=== PATIENT | female | born 1965 | race African-American/Black ===

== ENCOUNTER → 2016-08-04 | Outpatient (CLI) | payer BC ==
[~2016-08-04] MED LIST: BIOT1CAP8 PO; KRV28 PO; MULT-506 PO
== END | disposition home or self-care (01) ==
LOC: C.PAPS 10:02
PROVIDERS: ATTEND Obstetrics & Gynecology
DX: Z01.419 Encounter for gynecological examination (general) (routine) without abnormal findings (principal)

== ENCOUNTER → 2016-09-26 | Outpatient (CLI) | payer BC ==
--- NOTE | 2016-09-26 15:24 | MAMMOGRAPHY REPORT ---
BILATERAL DIGITAL SCREENING MAMMOGRAM TOMOSYNTHESIS WITH CAD: 09/26/2016 CLINICAL HISTORY: Routine screening. Patient has no complaints. TECHNIQUE: Breast tomosynthesis in addition to standard 2D mammography was performed. Current study was also evaluated with a Computer Aided Detection (CAD) system. COMPARISON: Comparison is made to exams dated: 09/19/2015 mammogram, 05/16/2014 mammogram, 05/05/2014 m ammogram, 12/07/2012 mammogram, 09/25/2011 mammogram, and 09/22/2011 mammogram - [facility]. BREAST COMPOSITION: The tissue of both breasts is heterogeneously dense, which may obscure small ma sses. FINDINGS: No suspicious masses, calcifications, or areas of architectural distortion are noted in e ither breast. There has been no significant interval change compared to prior exams. IMPRESSION: ACR BI-RADS CATEGORY 1: NEGATIVE There is no mammographic evidence of malignancy. A 1 year screening mammogram is recommended. The p atient will receive written notification of the results. Approximately 10% of breast cancers are not detected with mammography. A negative mammographic repor t should not delay biopsy if a clinically suggestive mass is present. Farida Fischer M.D. /:09/26/2016 15:11:13 Repair Table Operator: Renae WOODRUFF(R)(M), [facility] letter sent: Normal 1/2 BI-RADS Code: ACR BI-RADS Category 1: Negative
== END | disposition home or self-care (01) ==
LOC: C.MAMM 09:15
PROVIDERS: ATTEND Nurse Practitioner Family
DX: Z12.31 Encounter for screening mammogram for malignant neoplasm of breast (principal)

== ENCOUNTER → 2016-10-27 | Outpatient (CLI) | payer BC ==
--- NOTE | 2016-10-27 10:46 | DIAGNOSTIC IMAGING REPORT ---
RIGHT HAND MIN 3 VIEWS ROUTINE CLINICAL HISTORY: RIGHT HAND PAIN Right pain COMPARISON: None. DISCUSSION: The bones and joint spaces appear intact. There is no evidence of fracture, dislocation or bony disease. There is no evidence for soft tissue swelling. IMPRESSION: Negative study. Electronically signed by: Schuyler Sanchez M.D. 10/27/2016 10:45 AM Dictated Date/Time: 10/27/2016 10:44 AM
== END | disposition home or self-care (01) ==
LOC: C.RAD1850 10:03
PROVIDERS: ATTEND Family Medicine
DX: M79.641 Pain in right hand (principal)

== ENCOUNTER → 2017-01-19 | Outpatient (CLI) | payer BC ==
--- NOTE | 2017-01-19 16:07 | DIAGNOSTIC IMAGING REPORT ---
RIGHT ANKLE MIN 3 VIEWS CLINICAL HISTORY: Right ankle pain. COMPARISON: None FINDINGS: Alignment of the right ankle is anatomic. No fracture or suspicious lesion is present. There is mild plantar calcaneal spurring. Note is made of an 8 mm subchondral lucency of the medial talar dome with suspected mild associated cortical irregularity. IMPRESSION: 1. No acute fracture. 2. 8 mm subchondral lucency with mild cortical irregularity of the medial talar dome which suggests an osteochondral lesion. Electronically signed by: Raphael Irwin M.D. 01/19/2017 4:06 PM Dictated Date/Time: 01/19/2017 4:04 PM
--- NOTE | 2017-01-19 16:55 | DIAGNOSTIC IMAGING REPORT ---
RIGHT WRIST MIN 3 VIEWS ROUTINE CLINICAL HISTORY: 51 years-old Female presenting with RIGHT WRIST PAIN Right. TECHNIQUE: Frontal, carpal tunnel, oblique, and lateral views of the right wrist were obtained. COMPARISON: None. FINDINGS: Radiocarpal, intercarpal, and carpometacarpal articulations intact. Carpal tunnel normal in appearance. Focus of the hamate intact. No acute fracture or malalignment. No degenerative change. No radiographic evidence of soft tissue abnormality. IMPRESSION: No acute osseous injury or significant degenerative change. Electronically signed by: Noe Ibarra M.D. 01/19/2017 4:53 PM Dictated Date/Time: 01/19/2017 4:50 PM
== END | disposition home or self-care (01) ==
LOC: C.RDSM 16:07
PROVIDERS: ATTEND Family Medicine
DX: M79.641 Pain in right hand (principal); M25.571 Pain in right ankle and joints of right foot

== ENCOUNTER → 2017-01-27 | Outpatient (CLI) | payer BC ==
--- NOTE | 2017-01-27 11:33 | DIAGNOSTIC IMAGING REPORT ---
R LOWER EXT JOINT WITHOUT CLINICAL HISTORY: RIGHT ANKLE PAIN pain TECHNIQUE: Multiaxial MRI acquisition COMPARISON STUDY: None FINDINGS: Signal characteristics the osseous structures confirm the presence of a 6 mm osteochondral lesion medial talar dome. There is slight focal loss of the overlying articular services. Signal characteristics of all remaining osseous structures are unremarkable. Medial and lateral collateral ligament complexes are unremarkable. Findings mild tendinopathy of the posterior tibial tendon. Peroneal tendons appear to be intact. Findings a minimal degenerative change of the subtalar joint region. There is mild edematous change of the interosseous ligament. There are findings of very mild edematous change of the plantar fascia. Achilles tendon appears to be intact. All remaining ligamentous and tendinous structures are intact. There is mild soft tissue edematous change adjacent to the medial malleolus. IMPRESSION: 1. Moderate tendinopathy of the posterior tibialis tendon. 2. 6 mm osteochondral defect medial talar dome. 3. Mild edematous change of the plantar fascia. 4. Otherwise negative study The above report was generated using voice recognition software. It may contain grammatical, syntax or spelling errors. Electronically signed by: Schuyler Sanchez M.D. 01/27/2017 11:32 AM Dictated Date/Time: 01/27/2017 11:25 AM
== END | disposition home or self-care (01) ==
LOC: C.MRI 09:16
PROVIDERS: ATTEND Family Medicine
DX: M25.571 Pain in right ankle and joints of right foot (principal)

== ENCOUNTER → 2017-06-12 | Outpatient (CLI) | payer OTHER ==
[~2017-06-12] MED LIST changes: +CHOL1000 PO; -KRV28 PO; +METH4PAK PO; +METH500C8 PO
--- NOTE | 2017-06-12 17:45 | DIAGNOSTIC IMAGING REPORT ---
R LOWER EXT JOINT WITHOUT CLINICAL HISTORY: 51 years-old Female presenting with RIGHT ANKLE PAIN, LESION. TECHNIQUE: Multisequence, multiplanar MR imaging of the right ankle was performed without the use of intravenous contrast. IV contrast: None. COMPARISON: 01/27/2017. FINDINGS: Localizer images: Unremarkable. Persistent defect at the medial talar dome consistent with an osteochondral lesion. No subjacent fluid signal intensity to suggest instability. No increased cortical collapse is evident. No new sites of normal bone marrow signal intensity. Articular cartilage otherwise preserved. Minimal subcutaneous edema at the ankle. Fluid tracks along the tibialis posterior as on prior exam. Minimal fluid within the tendon sheath of the flexor digitorum longus and flexor hallucis longus. Minimal fluid tracks along the tendon sheath of the peroneus longus. Minimal fluid tracks along the tendon sheath of the extensor digitorum longus. Anterior inferior tibiofibular ligaments intact. Intraosseous ligament intact. Anterior and posterior talofibular ligaments intact. Calcaneofibular ligament intact. Deltoid ligament intact. Achilles tendon and plantar fascia intact. Small ankle joint effusion. IMPRESSION: 1. No significant change in appearance of the osteochondral lesion at the medial talar dome. No evidence of instability. 2. Fluid along the tendon sheaths of multiple ankle tendons suggest tendinitis. This involves the tibialis posterior, flexor digitorum longus, flexor hallucis longus, peroneus longus, and extensor digitorum longus. 3. Small ankle joint effusion. Electronically signed by: Noe Ibarra M.D. 06/12/2017 5:43 PM Dictated Date/Time: 06/12/2017 5:37 PM
== END | disposition home or self-care (01) ==
LOC: C.MRI 16:20
PROVIDERS: ATTEND Physician Assistant
DX: M89.9 Disorder of bone, unspecified (principal); M94.9 Disorder of cartilage, unspecified; Z91.018 Allergy to other foods; Z91.030 Bee allergy status

== ENCOUNTER → 2017-06-29 | Day surgery (SDC) | payer OTHER ==
[2017-06-02 16:16] VITALS: Ht 165.1 cm; Wt 108.2 kg
[~2017-06-29] VITALS: Ht 165.1 cm; Wt 108.2 kg
[~2017-06-29] MED LIST changes: +ATROPINE SULFATE 0.1 MG/ML 5ML SYR IV PRN; +CEFAZOLIN 2000MG IV PUSH 15 ML IV SCH; +DEXAMETHASONE SOD INJ 4 MG/ML VIAL ONE; +EpHEDrine SULFATE INJ 50 MG/ML AMP IV PRN; +EpINEphrine INJ 1MG/ML AMP 1 MG/ML AMP ONE; +FENTANYL CITRATE INJ 50 MCG/1 ML 2 ML VIAL IV PRN; +FENTANYL CITRATE INJ 50 MCG/1 ML 2 ML VIAL ONE; +HYDROmorphone INJ 1 MG/ML SYR IV PRN; +LIDOCAINE HCL 2% 2 ML VIAL (20MG/ML) ONE; +MIDAZOLAM HCL 1 MG/ML 2ML VIAL ONE; +ONDANSETRON INJ 2 MG/ML 2 ML VIAL IV PRN; +ONDANSETRON INJ 2 MG/ML 2 ML VIAL ONE; +OXYCODONE/ACETAMINOPHEN 5-325 TAB PO PRN; +PROMETHAZINE HCL INJ 12.5 MG in SODIUM CHLORIDE 0.9% 50ML 50 ML IV PRN; +PROPOFOL IV EMULSION 10 MG/ML 20 ML VIAL IV ONE; +ROPIVACAINE 0.5% 5 MG/ML 30 ML VIAL ONE; +SODIUM CHLORIDE 0.9% 1000ML 1,000 ML IV SCH
[2017-06-29] MEDS: LACTATED RINGER'S 1000ML 1,000 ML IV SCH ×2 (10:01→13:20)
--- NOTE | 2017-06-29 11:00 | History & Physical Bridge - SC ---
H&P Re-Evaluation Bridge Note: I have examined the patient, reviewed the History & Physical and in the interval since the performance of the History & Physical I have noted the following changes of clinical significance: No changes noted
--- NOTE | 2017-06-29 12:47 | [facility] Post Operative Brief Note ---
Immediate Operative Summary Operative Date Jun 29, 2017. Pre-Operative Diagnosis Right Ankle Osteochondral Lesion Of Talus, Right ankle synovitis Post-Operative Diagnosis Same Procedure(s) Performed Right Ankle Arthroscopy, Synovectomy, Microfracture of Osteochondral Lesion of the Talus Surgeon Dr. Lopez Four H Agent Surgeon(s) MATY Burnette, Fellow Estimated Blood Loss 5 ml Findings Consistent with Post-Op Diagnosis Fluids (cc crystalloids) 800 cc Specimens None Drains None Anesthesia Type General Complication(s) none Disposition Accompanied Pt To Recovery: no Disposition: Recovery Room / PACU
--- NOTE | 2017-06-29 12:54 | [facility] Operative Report ---
Operative Report Operative Date Jun 29, 2017. Pre-Operative Diagnosis Right Ankle Osteochondral Lesion Of Talus, Right ankle synovitis Post-Operative Diagnosis Same Procedure(s) Performed Right Ankle Arthroscopy, Synovectomy, Microfracture of Osteochondral Lesion of the Talus Surgeon Dr. Lopez Surveying Or Spatial Science Technician Surgeon(s) MATY Burnette, Fellow Estimated Blood Loss 5 ml Fluids 800 cc Specimens None Drains None Anesthesia Type General Complication(s) none Disposition no Recovery Room / PACU I attest to the content of the Intraoperative Record and any orders documented therein. Any exceptions are noted below.
--- NOTE | 2017-06-29 12:59 | Discharge Instructions ---
Discharge Instructions Date of Service Jun 29, 2017. 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 Instructions / Follow-Up Instructions / Follow-Up Post-operative Instructions Dear Patient and Family/Friends, Before you are discharged from the hospital, it is important to know what to expect when you get home after surgery. To that end, we have created this sheet of discharge instructions which covers many commonly asked questions. Make sure you go through this sheet in its entirety with your nurse before you are discharged. Please note that we will go over the specifics of your surgery and recovery when you return for your first post-operative visit. Sincerely, Dr. Lopez Pain Expect to be in a fair amount of pain after surgery. Remember, our goal is not to eliminate your pain, but to make it tolerable. It is a good idea to stay ahead of your pain by taking the medications you were prescribed once you get home. Typically, the pain starts improving 3-7 days after surgery. You should start weaning off the narcotic pain medication (oxycodone, hydrocodone, hydromorphone, morphine) as soon as your pain improves. Please call our office if your pain is not adequately controlled. Ice Ice your operative site at least 5 times a day for 15-30 minutes at a time. Make sure you have a thin cloth between the ice or cooling unit and your skin to prevent ruiz bite. This is especially important if you received a nerve block. Continue icing your operative site for the first 5-7 days after surgery , then as needed. Diet/Nausea/Vomiting Start by drinking clear liquids and eating crackers. If you can tolerate this, then you may resume your normal diet. If you feel nauseated or vomit, take Zofran/ondansetron (if prescribed). Please call our office if you have intractable nausea or vomiting, or, if after hours, you may go to the Emergency Room for help. Constipation Constipation is a common side effect of narcotic pain medication. If you have not had a bowel movement within 2 days after surgery, we recommend purchasing an over the counter laxative such as Milk of Magnesia, Dulcolax, or Miralax from a local pharmacy, and taking it as instructed. Call our clinic if any questions. Slings and Braces If you were placed in a sling or brace, it must be worn at all times, including sleep. You may remove your sling or brace for physical therapy, home exercises , and showering. The length of time you will be in your brace and range of motion restrictions depends on what surgery you had; these details will be reviewed at your first post-operative appointment. Nerve block The anesthesia team sometimes places a nerve block to help with post-operative pain control. This results in significant numbness and inability to move the extremity. The nerve block usually wears off in 8-12 hours, but sometimes can last up to 24 hours. Please call our office if you are still unable to move your extremity after 24 hours, unless you received a pain pump to take home. Nerve blocks typically wear off quickly, so start taking pain medication as soon as you start feeling soreness near your surgical site. Weight bearing and Range of Motion. Do not bear any weight through your operative extremity immediately after surgery. If you had upper extremity surgery, do not lift anything with that arm. If you are in a knee brace, keep it locked in place until your follow-up. We will discuss your weight bearing, range of motion, and lifting restrictions in detail at your first post-operative appointment. Continuous Passive Motion (CPM) Machine If you were prescribed a CPM machine, it will start after your first post- operative appointment, at which time we will give you instructions on the range of motion settings and duration of treatment Physical therapy You will be given a prescription for physical therapy or occupational therapy at your first post-operative appointment. Typically, patients start therapy within 1 week of surgery Wound care and showering We will inspect your wound at your first post-operative visit, and may do a dressing change at that time. Most patients will be in a water-proof dressing that is removed 14 days after surgery. It is normal to see some dried blood on the dressing. Do not remove your dressing, paper strips or sutures yourself unless you are given permission. Showering is allowed the day after surgery. Do not scrub or remove any dressings. The wound should not be submerged underwater (i.e. in a bathtub or pool) until 4 weeks after surgery ZOILA stockings If you were given white stockings, these are to be worn at all times except to shower (on both legs) for the first 2 weeks after surgery. Driving You may not drive while taking narcotic pain medication or while in a cast, splint, sling or brace. You, the patient, need to make the final determination about when you are safe to drive, however, the earliest you may consider driving after surgery is below: Hand/Wrist/Elbow Surgery: 3 days Shoulder Surgery: 2 weeks Hip,/Knee/Ankle Surgery: 4 weeks Fracture repair: 6 weeks Return to Work Your return to work depends on what surgery was done and what type of work you do. Please bring any paperwork your employer needs completed to your first post -operative visit. Also, bring a description of your job duties, as this helps us to understand what risks you may face at work. Travel Avoid long distance travel (greater than 1 hour) in airplanes and cars for the first 6 weeks after surgery. If you must travel, you need to have a Doppler ultrasound done before you travel to rule out a blood clot in your legs. Follow-up You should have a follow-up appointment already scheduled 1-2 days after surgery. If not, please contact our office to make this appointment before you leave the hospital. When to call the office It is normal to have swelling and bruising in the limb that was operated on. This will improve with time. It is also normal to have fevers for the first 2 days after surgery. Reasons you should call your doctor include: Uncontrolled pain; Nausea, vomiting, or constipation that does not improve with medication; Fevers over 101.5, chills, sweats; Drainage or bleeding from the wound; Foul odor; Spreading areas of redness; Any other concerns Current Hospital Diet Patient's current hospital diet: Discharge Diet Recommended Diet: Regular Diet Procedures Procedures Performed: Right Ankle Arthroscopy, Synovectomy, Microfracture of Osteochondral Lesion of the Talus Pending Studies Studies pending at discharge: no Medical Emergencies . Who to Call and When: Medical Emergencies: If at any time you feel your situation is an emergency, please call 911 immediately. . Non-Emergent Contact Non-Emergency issues call your: Primary Care Provider Call Non-Emergent contact if: you have a fever, temperature is above 101.5, your pain is not controlled, your pain is worsening, wound has increased drainage, you have any medication questions . "Provider Documentation" section prepared by Jono Neely. . VTE Core Measure Inpt VTE Proph given/why not?: Other Anticoagulation (Aspirin EC 81 mg), T.EFabiano Gagnon [place] Drug Monitoring Program Search Results: patient reviewed within database, no issues identified, see additional documentation
[2017-06-29 13:36] VITALS: TEMP 36.5
--- NOTE | 2017-06-29 13:53 | Anesthesia Progress Nt - [facility] ---
Anesthesia Post Op Note Date & Time Jun 29, 2017 at 13:53 Vital Signs Pain Intensity: 5 Vital Signs Past 12 Hours Date Time Temp Pulse Resp B/P (MAP) Pulse Ox O2 Delivery O2 Flow Rate FiO2 06/29/17 13:36 36.5 76 16 136/86 (103) 98 Room Air 06/29/17 13:31 36.4 142/94 06/29/17 13:28 72 0 06/29/17 13:28 72 0 100 06/29/17 13:26 138/91 06/29/17 13:23 67 0 06/29/17 13:23 67 0 100 06/29/17 13:21 142/86 06/29/17 13:18 66 0 06/29/17 13:18 66 0 100 06/29/17 13:16 136/88 06/29/17 13:13 67 0 06/29/17 13:13 67 0 100 06/29/17 13:11 138/85 06/29/17 13:08 67 0 100 06/29/17 13:08 68 0 06/29/17 13:06 141/86 06/29/17 13:03 82 5 06/29/17 13:03 83 5 100 06/29/17 13:01 128/82 06/29/17 12:58 67 12 100 06/29/17 12:58 67 12 06/29/17 12:56 138/85 06/29/17 12:54 134/83 06/29/17 12:53 36.7 74 16 134/83 97 Mask 6 06/29/17 09:45 36.3 78 18 130/98 (109) 100 Room Air Notes Mental Status: alert / awake / arousable, participated in evaluation Pt Amnestic to Procedure: Yes Nausea / Vomiting: adequately controlled Pain: adequately controlled Airway Patency, RR, SpO2: stable & adequate BP & HR: stable & adequate Hydration State: stable & adequate Anesthetic Complications: no major complications apparent
[2017-06-29 14:27] VITALS: BP 131/87; PULSE 73; O2SAT 99
--- NOTE | 2017-06-29 14:27 | OPERATIVE REPORT ---
DATE OF OPERATION: 06/29/2017 PREOPERATIVE DIAGNOSES: Right ankle synovitis and osteochondral lesion of the talus. POSTOPERATIVE DIAGNOSES: Same. OPERATIONS PERFORMED: Right ankle arthroscopy, synovectomy, and microfracture of osteochondral lesion of the talus. SURGEON: Dr. Noe Lopez. EQUINE INTERN: Tennille Neely and Kayden Green. ESTIMATED BLOOD LOSS: 5 mL. IV FLUIDS: 800 mL crystalloid. IMPLANTS: None. COMPLICATIONS: None. SPECIMENS: None. INDICATIONS: Ms. Tu Rowland is a 51-year-old female who has had medial ankle pain since September of 2016. MRI demonstrated an osteochondral lesion of the talus in a posteromedial location. She attempted conservative management with physical therapy as well as wearing a walking boot. The boot does give her some relief, but she has severe pain anytime she is out of the boot. Her exam is significant for medial joint line tenderness as well as mild lateral joint line tenderness. I had a long discussion with her about the risks and benefits of surgery, alternatives to surgery and expected outcomes. After reviewing all these, she elected to proceed with surgery. All questions were answered. Informed consent was signed. OPERATIVE FINDINGS: 1. The syndesmosis was normal. 2. The articular cartilage of the tibial plafond was normal with the exception of small amount of fraying along the anterior aspect. 3. The lateral malleolus had normal cartilage. 4. The lateral gutter showed a mild amount of synovitis. 5. Anterior gutter showed a mild amount of synovitis. 6. The medial gutter showed some synovitis. The deltoid ligament was intact. 7. Talus showed an osteochondral lesion which after debridement measured approximately 7 x 8 mm. 8. There was a bone spur along the anteromedial talar neck. The bone spur along the medial talar neck was debrided with the bur. Synovitis was removed with cautery. The calcified layer of the osteochondral lesion was removed to healthy bleeding bone. We then microfractured the lesion using transmedial malleolar 1.6 mm K-wires as well as a 1.5 mm 45 degree power pick through the AM portal. Bleeding was noted through the microfracture holes with the water turned off. DESCRIPTION OF THE OPERATION: The patient identified in the preoperative holding area where her surgical site was marked. She was brought back to main operating room where she was placed on the operating room table and general anesthesia was administered. All bony prominences were padded. Perioperative antibiotics were administered. She was prepped and draped in the normal sterile fashion. Prior to incision, a multidisciplinary timeout was called. All in the room was in agreement. We began by insufflating the ankle joint with 20 mL of normal saline. The return of the fluid back through the needle indicated we were successful in intra-articular placement. Anterior medial working portal was created followed by anterolateral working portal under direct visualization. Of note, we did sudheer out the course of the superficial peroneal nerve and took great care to stay away from the nerve with creation of an anterolateral portal. Diagnostic arthroscopy was then performed revealing the above findings. Once the diagnostic arthroscopy was complete, the shaver was used to resect synovitis as well as using the cautery. The spur along the anterior medial talar neck was then removed with a bur so that there was no impingement and full ankle dorsiflexion. Next, the strap was placed around the foot and she was placed in the traction to open up the tibiotalar joint. The osteochondral lesion was palpated. The softened areas of cartilage were demarcated and were removed with a curette until there was only stable cartilage remaining. Necrotic bone was noted to be adherent to the overlying cartilage. These fragments were removed with the sucker shaver. We then measured the size of her lesion. I have talked to her about the possibility of performing a juvenile allograft cartilage transplant for her ankle; however, the lesion was small enough size that a microfracture has been shown to have good outcomes and therefore we decided to proceed with a microfracture. The 45 degree power pick was then opened up. Three holes were made along the posterior aspect of the lesion using the power pick with a 1.5 mm drill. We then used the GPS targeting guide to make 3 more holes along the anterior aspect of the lesion coming through the shoulder of the medial malleolus. The water was then shut off and we could visualize bleeding from the subchondral bone surface as well as through the holes of the microfracture. At this point, the final arthroscopic images were obtained. The instruments were removed from the ankle. The portals were closed with 3-0 nylon sutures. 30 mL of 0.5% Naropin was injected into the joint and portal incisions for postoperative pain control. She was placed into a compressive dressing and placed back in her CAM walker boot. She was awoken from anesthesia and transferred to recovery room in stable condition. POSTOPERATIVE COURSE: The patient will be discharged home from the recovery room. She will be nonweightbearing for the next 6 weeks with early active range of motion, starting tomorrow. She will follow up in physical therapy tomorrow for review of her arthroscopic images and starting her physical therapy regimen. Aspirin for DVT prophylaxis. I attest to the content of the Intraoperative Record and any orders documented therein. Any exceptions are noted below. MTDD
== END | disposition home or self-care (01) ==
LOC: X.SURG 09:33
PROVIDERS: ATTEND Orthopaedic Surgery
DX: M93.271 Osteochondritis dissecans, right ankle and joints of right foot (principal); J45.909 Unspecified asthma, uncomplicated; E66.9 Obesity, unspecified; Z68.39 Body mass index [BMI] 39.0-39.9, adult; Z91.030 Bee allergy status; Z91.018 Allergy to other foods; Z80.3 Family history of malignant neoplasm of breast; Z83.3 Family history of diabetes mellitus; Z80.8 Family history of malignant neoplasm of other organs or systems

== ENCOUNTER → 2017-08-11 | Outpatient (CLI) | payer OTHER ==
[~2017-08-11] MED LIST changes: -ATROPINE SULFATE 0.1 MG/ML 5ML SYR IV PRN; -CEFAZOLIN 2000MG IV PUSH 15 ML IV SCH; -DEXAMETHASONE SOD INJ 4 MG/ML VIAL ONE; -EpHEDrine SULFATE INJ 50 MG/ML AMP IV PRN; -EpINEphrine INJ 1MG/ML AMP 1 MG/ML AMP ONE; -FENTANYL CITRATE INJ 50 MCG/1 ML 2 ML VIAL IV PRN; -FENTANYL CITRATE INJ 50 MCG/1 ML 2 ML VIAL ONE; -HYDROmorphone INJ 1 MG/ML SYR IV PRN; -LIDOCAINE HCL 2% 2 ML VIAL (20MG/ML) ONE; -MIDAZOLAM HCL 1 MG/ML 2ML VIAL ONE; -ONDANSETRON INJ 2 MG/ML 2 ML VIAL IV PRN; -ONDANSETRON INJ 2 MG/ML 2 ML VIAL ONE; -OXYCODONE/ACETAMINOPHEN 5-325 TAB PO PRN; -PROMETHAZINE HCL INJ 12.5 MG in SODIUM CHLORIDE 0.9% 50ML 50 ML IV PRN; -PROPOFOL IV EMULSION 10 MG/ML 20 ML VIAL IV ONE; -ROPIVACAINE 0.5% 5 MG/ML 30 ML VIAL ONE; -SODIUM CHLORIDE 0.9% 1000ML 1,000 ML IV SCH
== END | disposition home or self-care (01) ==
LOC: C.RDSM 11:35
PROVIDERS: ATTEND Orthopaedic Surgery
DX: Z98.890 Other specified postprocedural states (principal)